=== PATIENT | male | born 1980 | race Caucasian/White ===

== ENCOUNTER 2025-04-16 06:24 | Day surgery (SDC) | payer OTHER, SELFPAY | END 2025-04-16 16:30 | disposition home or self-care (01) | LOC: GI 06:24 | PROVIDERS: ATTENDING PHYSICIAN Internal Medicine Gastroenterology | DX: K57.30 Diverticulosis of large intestine without perforation or abscess without bleeding (principal); K64.8 Other hemorrhoids; R19.4 Change in bowel habit; Q43.8 Other specified congenital malformations of intestine | CPT/HCPCS: 45378 ==